=== PATIENT | male | born 1975 | race Caucasian/White ===

== ENCOUNTER 2017-03-01 19:36 | Emergency (ER) | END 2017-03-01 22:46 | disposition home or self-care (01) | DX: B34.9 Viral infection, unspecified (principal); R42 Dizziness and giddiness; Z87.891 Personal history of nicotine dependence | CPT/HCPCS: 36415; 80053; 84484; 85025; 85610; 85730; 93005; Z7502; Z7610 ==

== ENCOUNTER 2019-02-10 21:12 | Emergency (ER) | payer OTHER ==
[~2019-02-10] VITALS: Ht 182.9 cm; Wt 104.5 kg
[~2019-02-10 21:12] MED LIST: MECL12.574 PO; [UNRECOGNIZED DRUG - REMARK]
[2019-02-10 21:16] VITALS: Ht 182.9 cm; Wt 104.5 kg
--- NOTE | 2019-02-10 23:15 | ERD ---
ER Documentation Chief Complaint Chief Complaint FEVER X 2 WEEKS, ST X 1 WEEK HPI This is a 43-year-old male presented emergency department, accompanied by his family member. Patient complains of throat pain, productive cough that is on and off for about 2 weeks. Complaints of fevers at home. Denies headache, head injury, loss of consciousness, dizziness, neck pain, neck stiffness, throat pain, difficulty swallowing, difficulty breathing lying flat, shoulder pain, chest pain, back pain, abdominal pain, nausea, vomiting, constipation, diarrhea, urinary symptoms, loss of bowel and bladder control, trauma, injury, falls, difficulty walking due to pain, numbness or tingling sensation, calf pain, recent travel, recent major surgery in the last 3 weeks, calf pain, recent long travel, recent exposure to any illness, recent antibiotic use in the last 3 months, fever, chills, seizures. Past medical history: Surgical history: Social: Denies smoking, use of alcoholic beverages, use of illegal drugs. ROS All systems reviewed and are negative except as per history of present illness. Medications Home Meds Active Scripts Benzonatate* (Tessalon Perle*) 100 Mg Capsule, 100 MG PO Q8H PRN for COUGH, #15 CAP Prov:VIPIN BRADY 02/10/19 Azithromycin* (Zithromax*) 250 Mg Tablet, 250 MG PO .ZPACK DIRECTED, #6 TAB TAKE 500 MG (2 TABS) THE FIRST DAY THEN 250 MG (1 TAB) DAYS 2-5 Prov:VIPIN BRADY 02/10/19 Ondansetron Hcl* (Zofran*) 4 Mg Tablet, 4 MG PO Q8H PRN for NAUSEA AND/OR VOM ITING, #30 TAB Prov:VIPIN BRADY 02/10/19 Ibuprofen* (Motrin*) 800 Mg Tab, 800 MG PO Q6H PRN for PAIN AND OR ELEVATED TEMP, #30 TAB Prov:VIPIN BRADY 02/10/19 Meclizine Hcl* (Antivert*) 12.5 Mg Tab, 25 MG PO Q8 PRN for DIZZINESS, #20 TAB Prov:VIPIN BRADY 03/01/17 Reported Medications [denies meds and allergies] No Conflict Check 03/07/13 [None] No Conflict Check 04/04/10 Allergies Allergies: Uncoded Allergies: LOBSTER (Allergy, Unknown, 02/10/19) PMhx/Soc History of Surgery: No Anesthesia Reaction: No Hx Neurological Disorder: No Hx Respiratory Disorders: No Hx Cardiac Disorders: No Hx Psychiatric Problems: No Hx Miscellaneous Medical Probl: No Hx Alcohol Use: Yes Hx Substance Use: No Hx Tobacco Use: No Physical Exam Vitals Physical Exam Head: Atraumatic Eyes: Normal Conjunctiva ENT: Normal External Ears, Nose and Mouth. Bilateral ears: TMs are not erythematous. No bleeding. No discharge. No hearing loss. No mastoid tenderness. Nose: There is no frontal or maxillary sinus tenderness palpation. Throat: Uvula is in midline and nondisplaced. Tonsils are +1 bilaterally without redness and without exudates. Tolerating secretions. Patent airway. Speaks full and clear sentences. No tripoding. Neck: Full range of motion. No meningismus. No nuchal rigidity. No signs of meningeal irritation. Resp: Clear to auscultation bilaterally. No accessory muscle use in breathing. Cardio: Regular rate and rhythm, no murmurs Abd: Soft, non tender, non distended. Normal bowel sounds. Negative Tamayo sign. Skin: No petechiae or rashes. Color appears normal for ethnicity. No skin tenting. No signs of severe dehydration. Back: No midline or flank tenderness Ext: No cyanosis, or edema Neur: Awake and alert. No neurological deficits. Psych: Normal Mood and Affect Procedures/MDM Diagnostic tests: Clinical exam. Treatment: Not applicable. Re-evaluation: Not applicable. Differential diagnosis I have low suspicion for sepsis, meningitis, mastoiditis, peritonsillar abscess, pneumonia, pneumothorax, hemothorax, pulmonary embolism, bronchospasm, severe dehydration. Final diagnosis: Bronchitis. Patient is insisting for me to prescribe an antibiotic. Prescription: Azithromycin. Tessalon Perles. Motrin. Follow-up with PCP in the next 24-48 hours. Come back here in the emergency department for any new symptoms or any worsening symptoms. All questions and concerns were answered. Patient and family members verbalized understanding and agreed with plan of care. Hemodynamically stable on discharge. Departure Diagnosis: Primary Impression: Bronchitis Additional Impression: Sore throat Condition: Stable Additional Instructions: Follow-up with PCP in the next 24-48 hours. Come back here in the emergency department for any new symptoms or any worsening symptoms. VIPIN BRADY Feb 10, 2019 23:15
[2019-02-10] MEDS ORDERED: BENZ-6 PO (23:26)
[2019-02-10] MEDS ORDERED: AZIT250T PO (23:26)
[2019-02-10] MEDS ORDERED: IBUP800T48 PO (23:26)
[2019-02-10] MEDS ORDERED: ONDA4TAB8 PO (23:26)
[2019-02-11 00:26] VITALS: BP 147/84; PULSE 56; RESP 16
== END 2019-02-11 00:26 | disposition home or self-care (01) ==
LOC: FTE 21:12
DX: J40 Bronchitis, not specified as acute or chronic (principal); J02.9 Acute pharyngitis, unspecified
CPT/HCPCS: 99283